=== PATIENT | male | born 1955 | race Caucasian/White ===

== ENCOUNTER 2018-09-05 04:37 | Outpatient (CLI) | payer MEDICARE, BC ==
[~2018-09-05 04:37] MED LIST: ALLO100T PO; FURO-150 PO; GABA100C PO; HYDR-4353 PO; LANTUS SUBCUT; METF500T PO
== END 2018-09-05 23:59 | disposition home or self-care (01) ==
LOC: DIABETIC 04:37
PROVIDERS: ATTEND Family Medicine
DX: E11.65 Type 2 diabetes mellitus with hyperglycemia (principal); I10 Essential (primary) hypertension; J44.9 Chronic obstructive pulmonary disease, unspecified
CPT/HCPCS: G0108